=== PATIENT | male | born 1955 | race Native Hawaiian/Other Pacific Islander ===

== ENCOUNTER 2017-08-07 03:11 | Emergency (ER) | payer MEDICAID ==
[2017-08-07] MEDS ORDERED: Sodium Chloride 0.9% 1,000 ML IV ONE (04:06)
[2017-08-07 04:37] LABS: CHLORIDE 98 mmol/L (98-107); POTASSIUM 4.9 mmol/L (3.6-5.2); SODIUM 131 mmol/L (132-148)
[2017-08-07 04:38] LABS: INR 1.1
[2017-08-07 04:39] LABS: AMYLASE 77 U/L (30-110); AST/SGOT 30 U/L (17-59); CARBON DIOXIDE 21 mmol/L (22-30); GFR AFRICAN-AMERICAN > 60
[2017-08-07 04:40] LABS: ALB/GLOB RATIO 1.4 (1.0-2.1); ALKALINE PHOSPHATASE 79 U/L (38-126); ALT/SGPT 33 U/L (21-72); BLOOD UREA NITROGEN 17 mg/dL (9-20); GLUCOSE,RANDOM 252 mg/dL (75-110); TOTAL PROTEIN 7.5 g/dL (6.3-8.3)
--- NOTE | 2017-08-07 04:44 | C.PDOC ---
Addendum entered and electronically signed by Re Calix PA 08/07/17 09: 00: Addendum Addendum: 08/07/17 08:25 Patient was endorsed to me at 7:00. Abd & Pelvis CT scan reviewed, shows no acute inflammation or intestinal obstruction. Upon evaluation, patient was sleeping. On exam, abdomen is soft and non-tender. Lung are clear to auscultation. RRR. Pt is resting comfortably, tolerating PO, no acute distress. Pt states that pain has improved, and feels comfortable going home. Pt is being discharged home, with instructions to follow up with PMD in 1-2 days. Return to ED for worsening symptoms. Housing Director used to ensure understanding. Original Note: History Of Present Illness <Eufemia Hopper - Last Filed: 08/07/17 06:48> <Re Calix - Last Filed: 08/07/17 08:49> <Gillian Brewer - Last Filed: 08/07/17 19:23> 62 yo male w/PMHx of NIDDm come in for evaluation of gradual onset of nausea, multiple episodes of vomiting associated with periumbilical, LLQ pain since early today. Pt sts, multiple episodes of vomiting for past few hours, unable tolerate any PO intake. Otherwise, pt denies recent illness or abx use, denies recent travel or sick contact, substance abuse, denies fever, chills, CP, SOB, dyspnea, diaphoreis, hemamesis, diarrhea, back pain, At the time of evaluation, (+) vomiting, uncomfortable. (Eufemia Hopper) History Per: Patient Onset/Duration Of Symptoms: Gradual <Eufemia Hopper - Last Filed: 08/07/17 06:48> <Re Calix - Last Filed: 08/07/17 08:49> <Gillian Brewer - Last Filed: 08/07/17 19:23> Time Seen by Provider: 08/07/17 04:02 Chief Complaint (Nursing): Abdominal Pain Past Medical History Reviewed: Historical Data, Nursing Documentation, Vital Signs - Medical History PMH: Diabetes, HTN Surgical History: No Surg Hx Family History: States: No Known Family Hx - Social History Hx Tobacco Use: No Hx Alcohol Use: No Hx Substance Use: No - Immunization History Hx Tetanus Toxoid Vaccination: No Hx Influenza Vaccination: No Hx Pneumococcal Vaccination: No <Eufemia Hopper - Last Filed: 08/07/17 06:48> Vital Signs: Last Vital Signs Temp 98 F 08/07/17 07:20 Pulse 81 08/07/17 07:20 Resp 20 08/07/17 07:20 BP 125/70 08/07/17 07:20 Pulse Ox 94 L 08/07/17 07:20 Review Of Systems Except As Marked, All Systems Reviewed And Found Negative. Constitutional: Negative for: Fever, Chills Eyes: Negative for: Vision Change ENT: Negative for: Throat Pain Cardiovascular: Negative for: Chest Pain Respiratory: Negative for: Cough, Shortness of Breath Gastrointestinal: Positive for: Nausea, Vomiting, Abdominal Pain. Negative for : Diarrhea, Melena, Hematochezia, Hematemesis Genitourinary: Negative for: Dysuria, Incontinence Musculoskeletal: Negative for: Neck Pain, Back Pain Skin: Negative for: Rash Neurological: Negative for: Weakness, Numbness, Altered Mental Status, Headache , Dizziness <Eufemia Hopper - Last Filed: 08/07/17 06:48> Physical Exam - Physical Exam Appears: Well, Non-toxic, Other (vomiting) Skin: Normal Color, Warm, Dry, No Rash Eye(s): bilateral: PERRL Nose: No Flaring, No Discharge Oral Mucosa: Moist, No Drooling Throat: No Erythema, No Exudate, No Drooling Neck: Trachea Midline, Supple Cardiovascular: Rhythm Regular Respiratory: No Decreased Breath Sounds, No Accessory Muscle Use, No Stridor, No Wheezing Gastrointestinal/Abdominal: Soft, Tenderness (LLQ), No Distention, No Guarding, No Rebound Back: No CVA Tenderness Extremity: Normal ROM, No Pedal Edema Neurological/Psych: Oriented x3, Normal Speech <Eufemia Hopper - Last Filed: 08/07/17 06:48> ED Course And Treatment - Laboratory Results Result Diagrams: 08/07/17 06:15 08/07/17 04:26 O2 Sat by Pulse Oximetry: 96 Pulse Ox Interpretation: Normal Progress Note: Bloow work, hydration with IVF, sx tx. On re-eval, pt resting comfortably. Diagnostics review, CT abd/plevis-pending. Case discussed with Maddi and sign out for further eval/dispo. <Eufemia Hopper - Last Filed: 08/07/17 06:48> - Laboratory Results Result Diagrams: 08/07/17 06:15 08/07/17 04:26 <Gillian Brewer - Last Filed: 08/07/17 19:23> Disposition - Disposition Disposition Time: 06:53 <Eufemia Hopper - Last Filed: 08/07/17 06:48> <Re Calix - Last Filed: 08/07/17 08:49> <Gillian Brewer - Last Filed: 08/07/17 19:23> - Disposition Disposition: HOME/ ROUTINE Condition: STABLE Additional Instructions: Follow up with your primary medical doctor or clinic in 2-5 days for further evaluation. Take medications as prescribed. Return to the emergency department at any time if symptoms persist or worsen. Prescriptions: Calcium Carbonate/Simethicone [Maalox Advanced 1000 mg-60 mg] 1 ctb PO BID PRN # 20 ctb PRN Reason: Gi Distress Instructions: Acute Abdominal Pain (ED) Forms: [facility] (Indonesian) - Clinical Impression Clinical Impression: Abdominal pain, Nausea Physician Patient Turnover Patient Signed Over To: Re Calix Handoff Comments: CT abd/pelvis,re-eval, dispo <Eufemia Hopper - Last Filed: 08/07/17 06:48>
[2017-08-07 06:26] LABS: BASO % 0.5 % (0.0-2.0); EOS % 0.2 % (0.0-4.0); HEMATOCRIT 33.5 % (35.0-51.0); MEAN CELL VOLUME 78.5 fL (80.0-94.0); MEAN CORPUSCULAR HEMOGLOBIN 25.5 pg (27.0-31.0); MEAN CORPUSCULAR HGB CONC 32.5 g/dL (33.0-37.0); MEAN PLATELET VOLUME 9.5 fL (7.2-11.7); MONO # 0.4 K/uL (0.0-0.8); MONO % 4.4 % (0.0-10.0); WHITE BLOOD COUNT 8.3 K/uL (4.8-10.8)
[2017-08-07 06:32] VITALS: RESP 20
--- NOTE | 2017-08-07 07:22 | CT ---
EXAM: CT Abdomen and Pelvis With Intravenous Contrast EXAM DATE/TIME: 08/07/2017 4:43 AM CLINICAL HISTORY: 62 years old, male; Pain; Abdominal pain; Additional info: Llq pain, vomiting TECHNIQUE: Axial computed tomography images of the abdomen and pelvis with intravenous contrast. All CT scans at this facility use one or more dose reduction techniques, viz.: automated exposure control; ma/kV adjustment per patient size (including targeted exams where dose is matched to indication; i.e. head); or iterative reconstruction technique. Coronal and sagittal reformatted images were created and reviewed. CONTRAST: 100 mL of [id number] administered intravenously. COMPARISON: No relevant prior studies available. FINDINGS: Lower thorax: No acute findings. ABDOMEN: Liver: Unremarkable. No mass. Gallbladder and bile ducts: Unremarkable. No calcified stones. No ductal dilation. Pancreas: Unremarkable. No mass. No ductal dilation. Spleen: Unremarkable. No splenomegaly. Adrenals: Unremarkable. No mass. Kidneys and ureters: Unremarkable. No solid mass. No hydronephrosis. Stomach and bowel: Unremarkable. No dilatation of small or large bowel. No mucosal thickening. Appendix: Normal. PELVIS: Bladder: Unremarkable. No mass. Reproductive: Unremarkable as visualized. ABDOMEN and PELVIS: Intraperitoneal space: Unremarkable. No free air. No significant fluid collection. Bones/joints: Degenerative disc disease at L2-3. Tiny bone island left femoral neck. Soft tissues: Unremarkable. Vasculature: Unremarkable. No abdominal aortic aneurysm. Lymph nodes: No enlarged lymph nodes. IMPRESSION: No acute inflammation or intestinal obstruction.
[2017-08-07 07:41] VITALS: BP 125/70; PULSE 81; TEMP 98; O2SAT 94
[2017-08-07 08:30] LABS: RBC URINE < 1 /hpf (0-3); URINE BILIRUBIN NEGATIVE (NEGATIVE); URINE BLOOD NEGATIVE (NEGATIVE); URINE COLOR Yellow (YELLOW); URINE GLUCOSE (UA) 3+ mg/dL (Normal); URINE KETONE 1+ mg/dL (NEGATIVE); URINE LEUKOCYTE ESTERASE NEG Leu/uL (Negative); URINE PROTEIN NEGATIVE (NEGATIVE); URINE UROBILINOGEN NORMAL mg/dL (0.2-1.0); WBC URINE < 1 /hpf (0-5)
== END 2017-08-07 10:13 | disposition home or self-care (01) ==
LOC: C.ER 03:11
DX: R11.2 Nausea with vomiting, unspecified (principal); R10.32 Left lower quadrant pain; E11.9 Type 2 diabetes mellitus without complications; I10 Essential (primary) hypertension
CPT/HCPCS: 74177; 80053; 81001; 82150; 83690; 85025; 85610; 85730; 96374; 96375; 99285; J2405; J7040

== ENCOUNTER 2017-10-06 07:31 | Day surgery (SDC) | payer MEDICAID ==
[2017-10-06 09:00] VITALS: TEMP 97
[2017-10-06] MEDS ORDERED: Propofol 10 mg/ml Inj (20 ML) ONE (11:13)
[2017-10-06] MEDS ORDERED: Phenylephrine 10 mg/ml Inj ONE (11:24)
[2017-10-06 12:02] VITALS: O2SAT 100
[2017-10-06 12:45] VITALS: BP 111/55; PULSE 61; RESP 14
== END 2017-10-06 12:45 | disposition home or self-care (01) ==
LOC: C.ENDO 07:31
PROVIDERS: ATTEND Internal Medicine Gastroenterology
DX: K29.50 Unspecified chronic gastritis without bleeding (principal); K64.8 Other hemorrhoids
CPT/HCPCS: 43239; 45378; 82948; 88305; 88313; 88342; J2370; J2704; J3010

== ENCOUNTER 2017-10-25 13:58 | Emergency (ER) | payer MEDICAID ==
[2017-10-25] MEDS ORDERED: Sodium Chloride 0.9% 1,000 ML IV ONE (15:27)
[2017-10-25] MEDS ORDERED: Alum-Mag Hydrox-Simethicone Susp (30 mL) PO STA (15:28)
--- NOTE | 2017-10-25 15:40 | C.PDOC ---
History Of Present Illness 62 year old male, whose PMHx includes DM, HTN, Hyperlipidemia and PUD, presents to the ED for evaluation of a sharp, non-radiating colicky abdominal pain which began around around 0600 this morning. Patient reports 2-3 episodes of clear, non-bloody, non-bilious vomitus. Patient states he was diagnosed with peptic ulcer disease by his PMD 8 months ago. He underwent upper endoscopy 09/[address] Wasserman and was found to have an ulcer. He reports his current pain is similar to prior. He denies fever, chills, shortness of breath. Time Seen by Provider: 10/25/17 14:40 Chief Complaint (Nursing): Abdominal Pain History Per: Patient History/Exam Limitations: no limitations Onset/Duration Of Symptoms: Hrs Current Symptoms Are (Timing): Still Present Location Of Pain/Discomfort: Epigastric Radiation Of Pain To:: None Quality Of Discomfort: Sharp, "Pain" Associated Symptoms: Vomiting. denies: Fever, Chills Additional History Per: Patient Past Medical History Reviewed: Historical Data, Nursing Documentation, Vital Signs Vital Signs: Last Vital Signs Temp 98.9 F 10/25/17 14:04 Pulse 86 10/25/17 16:15 Resp 20 10/25/17 16:15 BP 158/98 H 10/25/17 16:15 Pulse Ox 97 10/25/17 16:15 - Medical History PMH: Diabetes, HTN Denies: Chronic Kidney Disease Surgical History: Endoscopy - [facility] Procedures EXCISION OF DUODENUM, ENDO, DIAGN (08/20/17) EXCISION OF STOMACH, ENDO, DIAGN (08/20/17) Family History: States: Unknown Family Hx - Social History Hx Tobacco Use: No Hx Alcohol Use: Yes (denies) Hx Substance Use: No - Immunization History Hx Tetanus Toxoid Vaccination: No Hx Influenza Vaccination: No Hx Pneumococcal Vaccination: No Review Of Systems Constitutional: Negative for: Fever, Chills Respiratory: Negative for: Shortness of Breath Gastrointestinal: Positive for: Nausea, Vomiting, Abdominal Pain Physical Exam - Physical Exam Appears: Non-toxic, No Acute Distress Skin: Normal Color, Warm, Dry Head: Atraumatic, Normacephalic Eye(s): bilateral: Normal Inspection Oral Mucosa: Moist Neck: Supple Chest: Symmetrical, No Deformity, No Tenderness Cardiovascular: Rhythm Regular, No Murmur Respiratory: Normal Breath Sounds, No Rales, No Rhonchi, No Wheezing Gastrointestinal/Abdominal: Soft, Tenderness (epigastric ), Guarding (slight ), No Rebound Extremity: Normal ROM, Capillary Refill (less than 2 seconds ) Neurological/Psych: Oriented x3, Normal Speech, Normal Cognition Gait: Steady ED Course And Treatment - Laboratory Results Result Diagrams: 10/25/17 16:36 10/25/17 16:36 Lab Interpretation: Normal (mild elev glu, normal LFT's) O2 Sat by Pulse Oximetry: 99 (on RA ) Pulse Ox Interpretation: Normal - Radiology CXR: Interpreted by Me CXR Interpretation: Yes: No Acute Disease - Other Rad abd x 2 X-Ray: Interpreted by Me (+FOS) Progress Note: Bloodwork, urinalysis, CXR, Obstructive Series Abdomen, EKG ordered. Carafate PO, Maalox PO, Protonix IVP, Zofran IVP and IV Fluids administered. Reevaluation Time: 17:26 Reassessment Condition: Improved Medical Decision Making Medical Decision Making: constipation colic. LOW susp of GB or renal colic. improved w ED Tx. Disposition Doctor Will See Patient In The: Office Counseled Patient/Family Regarding: Studies Performed, Diagnosis - Disposition Disposition: HOME/ ROUTINE Disposition Time: 17:27 Condition: GOOD Forms: [facility] (Lao) - Clinical Impression Clinical Impression: Abdominal colic - Scribe Statement The provider has reviewed the documentation as recorded by the Scribe (Ingrid Crawford) Provider Attestation: All medical record entries made by the Scribe were at my direction and personally dictated by me. I have reviewed the chart and agree that the record accurately reflects my personal performance of the history, physical exam, medical decision making, and the department course for this patient. I have also personally directed, reviewed, and agree with the discharge instructions and disposition.
[2017-10-25 16:42] LABS: BASO % 0.6 % (0.0-2.0); HEMOGLOBIN 11.4 g/dL (12.0-18.0); LYMPH # 1.1 K/uL (1.0-4.3); LYMPH % 14.9 % (20.0-40.0); MEAN CELL VOLUME 83.3 fL (80.0-94.0); MEAN CORPUSCULAR HEMOGLOBIN 27.1 pg (27.0-31.0); MEAN CORPUSCULAR HGB CONC 32.5 g/dL (33.0-37.0); MONO # 0.1 K/uL (0.0-0.8); MONO % 1.9 % (0.0-10.0); NEUT # 6.1 K/uL (1.8-7.0); NEUT % 82.6 % (50.0-75.0); RBC 4.22 Mil/uL (4.40-5.90); RED CELL DISTRIBUTION WIDTH 17.2 % (11.5-14.5); WHITE BLOOD COUNT 7.4 K/uL (4.8-10.8)
[2017-10-25 16:52] LABS: INR 1.1; PROTHROMBIN TIME 12.4 SECONDS (9.7-12.2)
[2017-10-25 17:07] LABS: ALB/GLOB RATIO 1.2 (1.0-2.1); ALBUMIN 4.1 g/dL (3.5-5.0); ALT/SGPT 26 U/L (21-72); AST/SGOT 29 U/L (17-59); BLOOD UREA NITROGEN 20 mg/dL (9-20); CALCIUM 8.8 mg/dl (8.6-10.4); GFR AFRICAN-AMERICAN > 60; GFR NON-AFRICAN AMERICAN > 60; LIPASE 45 U/L (23-300)
[2017-10-25 17:19] VITALS: RESP 20
[2017-10-25] MEDS ORDERED: Sodium Chloride 0.9% 1,000 ML ONE (17:40)
[2017-10-25 18:50] VITALS: BP 132/79; PULSE 97; TEMP 98.4; O2SAT 100
--- NOTE | 2017-10-26 13:46 | RAD ---
PROCEDURE: Radiographs of the chest and abdomen (obstructive series) HISTORY: abd pain COMPARISON: No prior. TECHNIQUE: AP radiograph of the chest, with upright and supine radiographs of the abdomen. FINDINGS: CHEST: Lungs: Clear. Cardiovascular: Normal size heart. No pulmonary vascular congestion. Pleura: No pleural fluid. No pneumothorax. Other findings: None. ABDOMEN AND PELVIS: Bowel: Stool retention. No evidence of mechanical obstruction. Free air: None. Bones: Unremarkable. Other findings: None. IMPRESSION: Stool retention.. No evidence of mechanical bowel obstruction. No infiltrate
== END 2017-10-25 18:39 | disposition home or self-care (01) ==
LOC: C.ER 13:58
DX: R10.84 Generalized abdominal pain (principal); I10 Essential (primary) hypertension; E11.9 Type 2 diabetes mellitus without complications; Z87.891 Personal history of nicotine dependence
CPT/HCPCS: 74022; 80053; 83690; 85025; 85610; 85730; 96374; 96375; 99285; C9113; J2405; J7040

== ENCOUNTER 2017-12-31 10:46 | Emergency (ER) | payer MEDICAID ==
[2017-12-31 10:50] VITALS: BMI 28.1
[2017-12-31 10:52] VITALS: TEMP 97.9
[2017-12-31] MEDS ORDERED: Aluminum Hydroxide/Magnesium Hydroxide Susp (30 mL) PO STA (11:21)
[2017-12-31] MEDS ORDERED: Sodium Chloride 0.9% 1,000 ML IV ONE (11:21)
--- NOTE | 2017-12-31 11:32 | C.PDOC ---
History Of Present Illness Patient does not speak Puerto Rican only Mary Jo, patient's history was obtained via patcher helper Karson Liu [id number]. Patient has a PMHx of DM and HTN currently taking medications. Patient presents today c/o tight like abdominal pain associated with nausea, burping that started yesterday night. Patient states his pain worsens with food. Patient reports he had an endoscopy done 2 months ago. Patient has not taken anything for his pain. Patient denies fever, chills, diarrhea, constipations, back pain. Time Seen by Provider: 12/31/17 11:08 Chief Complaint (Nursing): Abdominal Pain History Per: Patient, [employer] History/Exam Limitations: language barrier Onset/Duration Of Symptoms: Hrs Current Symptoms Are (Timing): Still Present Context: Food Location Of Pain/Discomfort: Diffuse Radiation Of Pain To:: None Quality Of Discomfort: Other (Tightness) Associated Symptoms: Nausea, Vomiting. denies: Diarrhea, Loss Of Appetite Exacerbating Factors: Food Alleviating Factors: None Recent travel outside of the [place]: No Additional History Per: Patient Past Medical History Reviewed: Historical Data, Nursing Documentation, Vital Signs Vital Signs: Last Vital Signs Temp 97.9 F 12/31/17 10:50 Pulse 79 12/31/17 17:47 Resp 18 12/31/17 17:47 BP 100/59 L 12/31/17 17:47 Pulse Ox 100 12/31/17 17:51 - Medical History PMH: Diabetes, HTN Denies: Chronic Kidney Disease Surgical History: Endoscopy - [facility] Procedures EXCISION OF DUODENUM, ENDO, DIAGN (08/20/17) EXCISION OF STOMACH, ENDO, DIAGN (08/20/17) Family History: States: Unknown Family Hx - Social History Hx Tobacco Use: No Hx Alcohol Use: Yes (denies) Hx Substance Use: No - Immunization History Hx Tetanus Toxoid Vaccination: No Hx Influenza Vaccination: No Hx Pneumococcal Vaccination: No Review Of Systems Constitutional: Negative for: Fever, Chills Respiratory: Negative for: Cough, Shortness of Breath Gastrointestinal: Positive for: Nausea, Vomiting, Abdominal Pain. Negative for : Diarrhea, Constipation Genitourinary: Negative for: Frequency Musculoskeletal: Negative for: Back Pain Skin: Negative for: Rash Neurological: Negative for: Weakness, Numbness Physical Exam - Physical Exam Appears: Non-toxic, No Acute Distress, Other (vomiting) Skin: Normal Color, Warm, Dry Head: Atraumatic, Normacephalic Eye(s): bilateral: Normal Inspection Nose: No Discharge Oral Mucosa: Moist Neck: Normal ROM, Supple Chest: Symmetrical Cardiovascular: Rhythm Regular, No Murmur Respiratory: Normal Breath Sounds, No Rales, No Rhonchi, No Wheezing Gastrointestinal/Abdominal: Bowel Sounds (hypoactive), Soft, Tenderness ( generalized), No Guarding, No Rebound, Other (obese) Extremity: Other (Left leg amputation BKA) Neurological/Psych: Oriented x3, Other (no focal deficits) Gait: With Assistance (crutches) ED Course And Treatment - Laboratory Results Result Diagrams: 12/31/17 11:35 12/31/17 11:35 Lab Interpretation: No Acute Changes ECG: Interpreted By Me, Viewed By Me ECG Rhythm: Sinus Rhythm ECG Interpretation: No Acute Changes Rate From EC O2 Sat by Pulse Oximetry: 100 (On RA) Pulse Ox Interpretation: Normal - Other Rad Obstructive Series X-Ray X-Ray: Viewed By Me, Read By Radiologist Interpretation: FINDINGS: CHEST: Lungs: Clear. Cardiovascular: Normal size heart. No pulmonary vascular congestion. Pleura: No pleural fluid. No pneumothorax. Other findings: None. ABDOMEN AND PELVIS: Bowel: Unremarkable bowel gas pattern. No evidence of mechanical obstruction. Free air: None. Bones: Unremarkable. Other findings: None. IMPRESSION: Unremarkable radiographs of chest and abdomen. No evidence of mechanical bowel obstruction.No significant interval change compared to the prior examination(s). - CT Scan/US CT abd/pelvis Other Rad Studies (CT/US): Read By Radiologist, Radiology Report Reviewed CT/US Interpretation: PROCEDURE: CT Abdomen and Pelvis with contrast. HISTORY : periumbilical abd pain, abnormal labs. COMPARISON: None. TECHNIQUE: Contrast dose: 100 mL Omnipaque 300. Radiation dose: Total exam DLP = 532.39 mGy-cm. This CT exam was performed using one or more of the following dose reduction techniques: Automated exposure control, adjustment of the mA and/or kV according to patient size, and/or use of iterative reconstruction technique. FINDINGS: LOWER THORAX: Unremarkable. LIVER: Unremarkable. No gross lesion or ductal dilatation. GALLBLADDER AND BILE DUCTS: Unremarkable. PANCREAS: Unremarkable. No gross lesion or ductal dilatation. SPLEEN: Unremarkable. ADRENALS: Unremarkable. No mass. KIDNEYS AND URETERS: Unremarkable. No hydronephrosis. No solid mass. VASCULATURE: Unremarkable. No aortic aneurysm. BOWEL: Unremarkable. No obstruction. No gross mural thickening. APPENDIX: Normal appendix. PERITONEUM: Unremarkable. No free fluid. No free air. LYMPH NODES: Unremarkable. No enlarged lymph nodes. BLADDER: Unremarkable. REPRODUCTIVE: Normal prostate. BONES: No acute fracture. OTHER FINDINGS: None. IMPRESSION: Unremarkable CT examination. Medical Decision Making Medical Decision Making: Impression: abdominal pain, nausea, vomiting Plan: * EKG * Obstructive series X-Ray * Labs * Bentyl 10 mg PO * Maalox 30 ml PO * Pepcid 20 mg IVP * IV fluids * Zofran 4 mg IVP * UA Progress: Labs reviewed with slight shift, and hyperglycemia. UA shows ketones. 1400: Case discussed with Dr Brewer who examined patient and recommend CT abdomen Labs reviewed, VBG 1745: CT shows no acute pathology for clinical presentation. Patient reevaluated was sleeping comfortably on stretcher. He has no fever and reports pain has improved. I provided copy of labs and CT scan. Advised patient to follow up with PCP Dr Connolly. Patient stable for discharge. Disposition - Disposition Referrals: Jamie Connolly MD [Medical Doctor] - Disposition: HOME/ ROUTINE Disposition Time: 17:51 Condition: IMPROVED Additional Instructions: Your labs and CT of abdomen were normal. Continue taking your usual medications for abdominal pain and take prescription if having pain. Follow up with your doctor for further evaluation. Prescriptions: Dicyclomine [Bentyl] 10 mg PO QID PRN #20 cap PRN Reason: Gi Distress Instructions: Acute Abdomen (Belly Pain), Adult (DC) Forms: [employer] (Puerto Rican) - POA Present On Arrival: None - Clinical Impression Clinical Impression: Abdominal bloating, Peptic ulcer - PA / CONFIGURATION TECHNICIAN / Resident Statement MD/DO has reviewed & agrees with the documentation as recorded. - Scribe Statement The provider has reviewed the documentation as recorded by the Scribe Aries Avila All medical record entries made by the Dorianibnaren were at my direction and personally dictated by me. I have reviewed the chart and agree that the record accurately reflects my personal performance of the history, physical exam, medical decision making, and the department course for this patient. I have also personally directed, reviewed, and agree with the discharge instructions and disposition.
[2017-12-31 11:38] LABS: BASO # 0.1 K/uL (0.0-0.2); BASO % 0.6 % (0.0-2.0); HEMOGLOBIN 12.8 g/dL (12.0-18.0); LYMPH # 0.8 K/uL (1.0-4.3); LYMPH % 8.9 % (20.0-40.0); MEAN CELL VOLUME 84.6 fL (80.0-94.0); MEAN CORPUSCULAR HEMOGLOBIN 28.2 pg (27.0-31.0); MEAN CORPUSCULAR HGB CONC 33.3 g/dL (33.0-37.0); MONO # 0.2 K/uL (0.0-0.8); MONO % 1.8 % (0.0-10.0); NEUT # 7.8 K/uL (1.8-7.0); NEUT % 88.7 % (50.0-75.0); PLATELET COUNT 274 K/uL (130-400); RBC 4.55 Mil/uL (4.40-5.90); WHITE BLOOD COUNT 8.8 K/uL (4.8-10.8)
[2017-12-31 11:52] LABS: ALB/GLOB RATIO 1.3 (1.0-2.1); ALBUMIN 4.8 g/dL (3.5-5.0); AMYLASE 97 U/L (30-110); AST/SGOT 26 U/L (17-59); BLOOD UREA NITROGEN 19 mg/dL (9-20); CALCIUM 9.7 mg/dl (8.6-10.4); GFR AFRICAN-AMERICAN > 60; GFR NON-AFRICAN AMERICAN > 60; LIPASE 49 U/L (23-300)
[2017-12-31 12:00] LABS: ALT/SGPT 29 U/L (21-72)
[2017-12-31 12:02] LABS: ANISOCYTOSIS SLIGHT; LYMPHOCYTE 9 % (20-40); MONOCYTE 2 % (0-10); NEUTROPHIL 89 % (50-75); PLATELET ESTIMATE NORMAL (NORMAL); TOTAL CELLS COUNTED 100
[2017-12-31] MEDS ORDERED: Aluminum Hydroxide/Magnesium Hydroxide Susp (30 mL) ONE (12:06)
--- NOTE | 2017-12-31 12:58 | RAD ---
PROCEDURE: Radiographs of the chest and abdomen (obstructive series) HISTORY: abd pain, vomiting, h/o GERD COMPARISON: When 18 18 TECHNIQUE: AP radiograph of the chest, with upright and supine radiographs of the abdomen. FINDINGS: CHEST: Lungs: Clear. Cardiovascular: Normal size heart. No pulmonary vascular congestion. Pleura: No pleural fluid. No pneumothorax. Other findings: None. ABDOMEN AND PELVIS: Bowel: Unremarkable bowel gas pattern. No evidence of mechanical obstruction. Free air: None. Bones: Unremarkable. Other findings: None. IMPRESSION: Unremarkable radiographs of chest and abdomen. No evidence of mechanical bowel obstruction.No significant interval change compared to the prior examination(s).
[2017-12-31 13:38] LABS: SQUAMOUS EPITHIAL < 1 /hpf (0-5); URINE BILIRUBIN NEGATIVE (NEGATIVE); URINE BLOOD NEGATIVE (NEGATIVE); URINE CLARITY Clear (Clear); URINE COLOR Yellow (YELLOW); URINE GLUCOSE (UA) 3+ mg/dL (Normal); URINE LEUKOCYTE ESTERASE NEG Leu/uL (Negative); URINE PROTEIN 2+ mg/dL (NEGATIVE); URINE UROBILINOGEN NORMAL mg/dL (0.2-1.0)
[2017-12-31 14:03] LABS: BARBITURATES, UR NEGATIVE (NEGATIVE); BENZODIAZEPINES, UR NEGATIVE (NEGATIVE); OPIATES, UR NEGATIVE (NEGATIVE); PHENCYCLIDINE, UR NEGATIVE (NEGATIVE)
[2017-12-31 14:12] VITALS: O2SAT 100
[2017-12-31 15:23] LABS: ABG ALLEN TEST VBG; VENOUS BLOOD GAS BASE EXCESS 2.7 mmol/L (0.0-2.0); VENOUS BLOOD GAS PCO2 44 mmHg (40-60); VENOUS BLOOD GAS PO2 38 mm/Hg (30-55); VENOUS BLOOD PH 7.41 (7.32-7.43)
[2017-12-31] MEDS ORDERED: Iohexol 350mg/ml 100 ML ONE (17:12)
--- NOTE | 2017-12-31 17:41 | CT ---
PROCEDURE: CT Abdomen and Pelvis with contrast HISTORY: periumbilical abd pain, abnormal labs COMPARISON: None. TECHNIQUE: Contrast dose: 100 mL Omnipaque 300 Radiation dose: Total exam DLP = 532.39 mGy-cm. This CT exam was performed using one or more of the following dose reduction techniques: Automated exposure control, adjustment of the mA and/or kV according to patient size, and/or use of iterative reconstruction technique. FINDINGS: LOWER THORAX: Unremarkable. LIVER: Unremarkable. No gross lesion or ductal dilatation. GALLBLADDER AND BILE DUCTS: Unremarkable. PANCREAS: Unremarkable. No gross lesion or ductal dilatation. SPLEEN: Unremarkable. ADRENALS: Unremarkable. No mass. KIDNEYS AND URETERS: Unremarkable. No hydronephrosis. No solid mass. VASCULATURE: Unremarkable. No aortic aneurysm. BOWEL: Unremarkable. No obstruction. No gross mural thickening. APPENDIX: Normal appendix. PERITONEUM: Unremarkable. No free fluid. No free air. LYMPH NODES: Unremarkable. No enlarged lymph nodes. BLADDER: Unremarkable. REPRODUCTIVE: Normal prostate BONES: No acute fracture. OTHER FINDINGS: None. IMPRESSION: Unremarkable CT examination.
[2017-12-31 17:47] VITALS: BP 100/59; PULSE 79; RESP 18
== END 2017-12-31 18:25 | disposition home or self-care (01) ==
LOC: C.ER 10:46
DX: K27.9 Peptic ulcer, site unspecified, unspecified as acute or chronic, without hemorrhage or perforation (principal); I10 Essential (primary) hypertension; E11.9 Type 2 diabetes mellitus without complications; F17.210 Nicotine dependence, cigarettes, uncomplicated
CPT/HCPCS: 74022; 74177; 80053; 80324; 80345; 80346; 80349; 80353; 80358; 80361; 81001; 82150; 82803; 82948; 83690; 83992; 85025; 96361; 96374; 96375; 99285; J2405; J7040; Q9967